=== PATIENT | male | born 1955 | race Caucasian/White ===

== ENCOUNTER 2016-04-16 12:35 | Inpatient (IN) | payer MEDICARE, MEDICAID ==
[~2016-04-16] VITALS: Ht 185.4 cm; Wt 78.9 kg
[~2016-04-16 12:35] MED LIST: BACITRACIN OINT TOPICAL ONE; DILAUDID 1 MG/ML AMP IV ONE; FENTANYL 100 MCG/2 ML AMP IV ONE; GLYCOPYRROLATE 0.2 MG/ML VIAL IV ONE; NEOSTIGMINE 10 MG/10 ML VIAL IV ONE; PHENYLEPHRINE 10 MG/ML VIAL IV ONE; PROPOFOL 50ML PER ML IV ONE; ROCURONIUM 50 MG VIAL IV ONE
[2016-04-16] MEDS ORDERED: SODIUM CHLORIDE 0.9% 500 ML IV ONE (13:10)
[2016-04-16] MEDS ORDERED: TDaP 0.5 ML VIAL IM.VACC ONE (14:47)
[2016-04-16] MEDS ORDERED: MORPHINE 4 MG/ML SYR ONE (16:36)
[2016-04-16] MEDS ORDERED: MAG HYDROX 30 ML UDC PO PRN (16:55)
[2016-04-16] MEDS ORDERED: MORPHINE 2 MG/ML SYR IV PRN (16:55)
[2016-04-16] MEDS ORDERED: ZOLPIDEM 5 MG TAB PO PRN (16:55)
[2016-04-16] MEDS ORDERED: KETOROLAC 15 MG/ML VIAL IM/IV PRN (16:55)
[2016-04-16] MEDS ORDERED: NITROGLYCERIN SL 0.4 MG TAB SL PRN (16:55)
[2016-04-16] MEDS ORDERED: PROMETHAZINE 25 MG/ML VIAL IM/IV PRN (16:55)
[2016-04-16] MEDS ORDERED: SALINE FLUSH 10 ML FLUSH PRN (16:55)
[2016-04-16] MEDS ORDERED: ONDANSETRON 4 MG VIAL IV PRN (16:55)
[2016-04-16] MEDS ORDERED: LACT RINGERS 1,000 ML IV SCH (17:45)
[2016-04-16 18:28] VITALS: BP_SYST 92; RESP 18; TEMP 97.6; Ht 185.4 cm; Wt 78.9 kg
[2016-04-16] MEDS: ASPIRIN 81 MG CHEW TAB PO SCH (18:47)
[2016-04-16] MEDS: MULTIVITS/MINERALS (THERAGRAN M) TAB PO SCH (18:47)
[2016-04-16] MEDS: AMIODARONE 200 MG TAB PO SCH (18:47)
[2016-04-16] MEDS: NICOTINE 21 MG/24 HR TRANSDERM SCH (18:48)
[2016-04-16] MEDS: DIGOXIN 0.125 MG TAB PO SCH (18:48)
[2016-04-16] MEDS: PAROXETINE HCL 20 MG TAB PO SCH (18:48)
[2016-04-16 19:21] VITALS: BP_SYST 86; RESP 16; TEMP 98.1
[2016-04-16 19:40] VITALS: RESP 20
[2016-04-16] MEDS: DUONEB INH SCH (19:40)
[2016-04-16] MEDS: SALINE FLUSH 10 ML FLUSH SCH (20:00)
[2016-04-16] MEDS ORDERED: SODIUM CHLORIDE 0.9% 1,000 ML IV ONE (20:30)
[2016-04-16] MEDS: Carvedilol 6.25 MG TAB PO SCH (21:04)
[2016-04-16] MEDS: DOCUSATE SOD 100 MG CAP PO SCH (21:04)
[2016-04-16] MEDS: LEVETIRACETAM 500 MG TAB PO SCH (21:04)
[2016-04-16 22:54] VITALS: BP_SYST 104; RESP 16; TEMP 98.2
[2016-04-17] VITALS (16 sets, daily range): BP systolic 85–124; RESP 14–20; TEMP 97.3–98.9
[2016-04-17] MEDS ORDERED: SODIUM CHLORIDE 0.9% 1,000 ML IV ONE (05:55)
[2016-04-17] MEDS ORDERED: SODIUM CHLORIDE 0.9% FLUSH BAG 500 ML IV SCH (06:00)
[2016-04-17] MEDS: DUONEB INH SCH ×3 (07:05→18:30)
[2016-04-17] MEDS: SALINE FLUSH 10 ML FLUSH SCH ×3 (07:27→19:41)
[2016-04-17] MEDS: MAG HYDROX 30 ML UDC PO SCH (07:28)
[2016-04-17] MEDS: MULTIVITS/MINERALS (THERAGRAN M) TAB PO SCH (07:28)
[2016-04-17] MEDS: NICOTINE 21 MG/24 HR TRANSDERM SCH (07:29)
[2016-04-17] MEDS: ASPIRIN 81 MG CHEW TAB PO SCH (08:00)
[2016-04-17] MEDS ORDERED: CEFAZOLIN 2,000 MG in SODIUM CHLORIDE 0.9% 100 ML IV ONE (08:30)
[2016-04-17] MEDS ORDERED: LIDOCAINE 1% BUFFERED 1 ML SYR INTRADERM PRN (08:55)
[2016-04-17] MEDS ORDERED: NEB-ALBUTEROL 2.5 MG/3 ML INH ONE (08:55)
[2016-04-17] MEDS ORDERED: GLYCOPYRROLATE 0.2 MG/ML VIAL IV ONE (08:55)
[2016-04-17] MEDS ORDERED: LACT RINGERS 1,000 ML IV SCH ×2 (08:55→18:00)
[2016-04-17] MEDS ORDERED: MIDAZOLAM 2 MG/2 ML INJ IV ONE (08:55)
[2016-04-17] MEDS: DOCUSATE SOD 100 MG CAP PO SCH ×2 (09:00→19:41)
[2016-04-17] MEDS: Carvedilol 6.25 MG TAB PO SCH ×2 (09:52→21:02)
[2016-04-17] MEDS: PAROXETINE HCL 20 MG TAB PO SCH (09:52)
[2016-04-17] MEDS: AMIODARONE 200 MG TAB PO SCH (09:52)
[2016-04-17] MEDS: LEVETIRACETAM 500 MG TAB PO SCH ×2 (09:52→21:02)
[2016-04-17] MEDS: CALCIUM /VIT D 600 MG TAB PO SCH ×2 (10:13→21:02)
[2016-04-17] MEDS: DIGOXIN 0.125 MG TAB PO SCH (12:15)
[2016-04-17] MEDS ORDERED: MIDAZOLAM 2 MG/2 ML INJ ONE (15:55)
[2016-04-17] MEDS ORDERED: ONDANSETRON 4 MG VIAL IV PRN ×2 (18:00→18:15)
[2016-04-17] MEDS ORDERED: TEMAZEPAM 15 MG CAP PO PRN (18:00)
[2016-04-17] MEDS ORDERED: MAG HYDROX 30 ML UDC PO PRN (18:00)
[2016-04-17] MEDS ORDERED: SALINE FLUSH 10 ML FLUSH PRN (18:00)
[2016-04-17] MEDS ORDERED: TEMAZEPAM 7.5 MG CAP PO PRN (18:00)
[2016-04-17] MEDS ORDERED: PROMETHAZINE 25 MG/ML VIAL IM/IV PRN (18:00)
[2016-04-17] MEDS ORDERED: ZOLPIDEM 5 MG TAB PO PRN (18:00)
[2016-04-17] MEDS ORDERED: OXYCODONE 5 MG TAB PO PRN (18:15)
[2016-04-17] MEDS ORDERED: DILAUDID 1 MG/ML AMP IV PRN (18:15)
[2016-04-17] MEDS ORDERED: MEPERIDINE 25 MG/ML IV PRN (18:15)
[2016-04-17] MEDS ORDERED: MORPHINE 4 MG/ML SYR IV PRN (18:15)
[2016-04-17] MEDS ORDERED: MORPHINE 2 MG/ML SYR IV PRN (18:15)
[2016-04-17] MEDS: CEFAZOLIN 2,000 MG in SODIUM CHLORIDE 0.9% 100 ML IV SCH (21:02)
[2016-04-17] MEDS: SENNA 8.6 MG TAB PO SCH (21:02)
[2016-04-18 00:54] VITALS: BP_SYST 102; RESP 18; TEMP 98.3
[2016-04-18 02:56] VITALS: BP_SYST 111; RESP 18; TEMP 97.5
[2016-04-18] MEDS: CEFAZOLIN 2,000 MG in SODIUM CHLORIDE 0.9% 100 ML IV SCH ×3 (04:14→16:04)
[2016-04-18] MEDS: DUONEB INH SCH ×3 (05:15→17:11)
[2016-04-18] MEDS: SODIUM CHLORIDE 0.9% FLUSH BAG 500 ML IV SCH (05:38)
[2016-04-18] MEDS: Rivaroxaban 10 MG TAB PO SCH (05:38)
[2016-04-18 08:28] VITALS: BP_SYST 120; RESP 16; TEMP 98.5
[2016-04-18] MEDS ORDERED: ERGOCALCIFEROL 50,000 UNITS (1.25 MG) CAP PO SCH (09:00)
[2016-04-18] MEDS: POLYETHYLENE GLYCOL 17 GM PACKET PO SCH ×2 (09:00→09:22)
[2016-04-18] MEDS: MAG HYDROX 30 ML UDC PO SCH ×3 (09:00→09:22)
[2016-04-18] MEDS: Carvedilol 6.25 MG TAB PO SCH ×2 (09:00→20:45)
[2016-04-18] MEDS: SALINE FLUSH 10 ML FLUSH SCH ×2 (09:08→20:45)
[2016-04-18] MEDS: ASPIRIN 81 MG CHEW TAB PO SCH (09:09)
[2016-04-18] MEDS: CALCIUM /VIT D 600 MG TAB PO SCH ×2 (09:09→20:44)
[2016-04-18] MEDS: DOCUSATE SOD 100 MG CAP PO SCH ×2 (09:10→20:45)
[2016-04-18] MEDS: AMIODARONE 200 MG TAB PO SCH (09:10)
[2016-04-18] MEDS: LEVETIRACETAM 500 MG TAB PO SCH ×2 (09:11→20:44)
[2016-04-18] MEDS: SENNA 8.6 MG TAB PO SCH ×2 (09:12→20:45)
[2016-04-18] MEDS: PAROXETINE HCL 20 MG TAB PO SCH (09:12)
[2016-04-18] MEDS: MULTIVITS/MINERALS (THERAGRAN M) TAB PO SCH (09:13)
[2016-04-18] MEDS: NICOTINE 21 MG/24 HR TRANSDERM SCH (09:25)
[2016-04-18] MEDS ORDERED: Furosemide 40 MG TAB PO SCH (10:35)
[2016-04-18] MEDS: ENTRESTO 24/26 MG TAB PO SCH ×2 (11:06→20:45)
[2016-04-18] MEDS: SPIRONOLACTONE 25 MG TAB PO SCH (11:06)
[2016-04-18] MEDS: FENOFIBRATE 145 MG TAB PO SCH (11:07)
[2016-04-18] MEDS: DIGOXIN 0.125 MG TAB PO SCH (11:12)
[2016-04-18 11:24] VITALS: BP_SYST 96; RESP 16; TEMP 97.7
[2016-04-18 15:58] VITALS: BP_SYST 115; RESP 16; TEMP 98.2
[2016-04-18] MEDS: CLOPIDOGREL 75 MG TAB PO SCH (17:21)
[2016-04-18 18:53] VITALS: BP_SYST 103; RESP 16; TEMP 98.6
[2016-04-18] MEDS ORDERED: BISACODYL 10 MG SUPP RECTAL PRN (19:40)
[2016-04-18] MEDS: DILAUDID 1 MG/ML AMP IV PRN (20:48)
[2016-04-19] VITALS (8 sets, daily range): BP systolic 89–102; RESP 18–20; TEMP 97.7–98.6
[2016-04-19] MEDS: DILAUDID 1 MG/ML AMP IV PRN (01:23)
[2016-04-19] MEDS: DUONEB INH SCH ×3 (05:30→17:11)
[2016-04-19] MEDS: SODIUM CHLORIDE 0.9% FLUSH BAG 500 ML IV SCH (06:00)
[2016-04-19] MEDS: Rivaroxaban 10 MG TAB PO SCH (06:51)
[2016-04-19] MEDS ORDERED: Furosemide 20 MG TAB PO SCH (09:00)
[2016-04-19] MEDS: POLYETHYLENE GLYCOL 17 GM PACKET PO SCH (09:04)
[2016-04-19] MEDS: MULTIVITS/MINERALS (THERAGRAN M) TAB PO SCH (09:05)
[2016-04-19] MEDS: SENNA 8.6 MG TAB PO SCH ×2 (09:05→21:00)
[2016-04-19] MEDS: DOCUSATE SOD 100 MG CAP PO SCH ×2 (09:05→21:00)
[2016-04-19] MEDS: LEVETIRACETAM 500 MG TAB PO SCH ×2 (09:05→21:25)
[2016-04-19] MEDS: FENOFIBRATE 145 MG TAB PO SCH (09:05)
[2016-04-19] MEDS: CLOPIDOGREL 75 MG TAB PO SCH (09:05)
[2016-04-19] MEDS: AMIODARONE 200 MG TAB PO SCH (09:05)
[2016-04-19] MEDS: SPIRONOLACTONE 25 MG TAB PO SCH (09:05)
[2016-04-19] MEDS: PAROXETINE HCL 20 MG TAB PO SCH (09:05)
[2016-04-19] MEDS: ENTRESTO 24/26 MG TAB PO SCH ×2 (09:06→21:25)
[2016-04-19] MEDS: Carvedilol 6.25 MG TAB PO SCH (09:06)
[2016-04-19] MEDS: MAG HYDROX 30 ML UDC PO SCH (09:06)
[2016-04-19] MEDS: CALCIUM /VIT D 600 MG TAB PO SCH ×2 (09:06→21:25)
[2016-04-19] MEDS: SALINE FLUSH 10 ML FLUSH SCH ×2 (09:07→21:25)
[2016-04-19] MEDS: NICOTINE 21 MG/24 HR TRANSDERM SCH (09:07)
[2016-04-19] MEDS ORDERED: MISSING DOSE XX ONE (12:25)
[2016-04-19] MEDS: DIGOXIN 0.125 MG TAB PO SCH (13:05)
[2016-04-19] MEDS ORDERED: TAMSULOSIN 0.4 MG CAP PO SCH (21:00)
[2016-04-19] MEDS: Carvedilol 3.125 MG TAB PO SCH (21:25)
[2016-04-20 04:27] VITALS: BP_SYST 121; RESP 18; TEMP 98.7
[2016-04-20] MEDS: SODIUM CHLORIDE 0.9% FLUSH BAG 500 ML IV SCH (05:58)
[2016-04-20] MEDS: Rivaroxaban 10 MG TAB PO SCH (07:24)
[2016-04-20] MEDS: MAG HYDROX 30 ML UDC PO SCH (07:28)
[2016-04-20] MEDS: SENNA 8.6 MG TAB PO SCH (07:29)
[2016-04-20] MEDS: DOCUSATE SOD 100 MG CAP PO SCH (07:29)
[2016-04-20] MEDS: POLYETHYLENE GLYCOL 17 GM PACKET PO SCH (07:29)
[2016-04-20] MEDS: DUONEB INH SCH ×3 (07:34→18:10)
[2016-04-20 08:22] VITALS: BP_SYST 111; RESP 16; TEMP 98.5
[2016-04-20] MEDS: NICOTINE 21 MG/24 HR TRANSDERM SCH (08:51)
[2016-04-20] MEDS: SPIRONOLACTONE 25 MG TAB PO SCH (08:51)
[2016-04-20] MEDS: AMIODARONE 200 MG TAB PO SCH (08:51)
[2016-04-20] MEDS: ENTRESTO 24/26 MG TAB PO SCH (08:51)
[2016-04-20] MEDS: CALCIUM /VIT D 600 MG TAB PO SCH (08:51)
[2016-04-20] MEDS: CLOPIDOGREL 75 MG TAB PO SCH (08:52)
[2016-04-20] MEDS: MULTIVITS/MINERALS (THERAGRAN M) TAB PO SCH (08:52)
[2016-04-20] MEDS: FENOFIBRATE 145 MG TAB PO SCH (08:52)
[2016-04-20] MEDS: Carvedilol 3.125 MG TAB PO SCH (08:52)
[2016-04-20] MEDS: LEVETIRACETAM 500 MG TAB PO SCH (08:52)
[2016-04-20] MEDS: PAROXETINE HCL 20 MG TAB PO SCH (08:52)
[2016-04-20] MEDS: SALINE FLUSH 10 ML FLUSH SCH (08:53)
[2016-04-20] MEDS ORDERED: Furosemide 40 MG TAB PO SCH (09:00)
[2016-04-20 12:28] VITALS: BP_SYST 111; RESP 16; TEMP 98.5
[2016-04-20 12:34] VITALS: BP_SYST 90; RESP 16; TEMP 97.1
[2016-04-20] MEDS: DIGOXIN 0.125 MG TAB PO SCH (13:00)
[2016-04-20 15:44] VITALS: BP_SYST 101; RESP 16; TEMP 97.2
== END 2016-04-20 20:07 | DRG 481 ==
LOC: ER 12:35 → ENPENDDIS 17:11 → EMR 17:11 → 2NO 18:26
PROVIDERS: ADMIT Internal Medicine; ATTEND Internal Medicine
PROC: 0HQ0XZZ Repair Scalp Skin, External Approach (ICD-10-PCS; 2016-04-16)
PROC: 0QS736Z Reposition Left Upper Femur with Intramedullary Internal Fixation Device, Percutaneous Approach (ICD-10-PCS; principal; 2016-04-17 16:45)
CPT/HCPCS: 36415; 70450; 71010; 72125; 76000; 80048; 80053; 81003; 82306; 82397; 82553; 83880; 84484; 85025; 85610; 85652; 85730; 90471; 93005; 94640; 94799; 96361; 96374; 99232; 99233